=== PATIENT | female | born 1940 | race Asian ===

== ENCOUNTER 2017-11-14 02:55 | Inpatient (IN) | payer MEDICARE, MEDICAID ==
[2017-11-14] MEDS ORDERED: Nitroglycerin 2% Ointment 1 INCH/1 GM Packet ONE (03:19)
[2017-11-14] MEDS ORDERED: Metoprolol Tartrate 5 MG/5 ML VIAL ONE (03:19)
[2017-11-14 03:34] LABS: #Basophils 0.1 thou/uL (0.0-0.2); #Eosinphils 0.1 thou/uL (0.0-0.7); #Lymphocytes 1.4 thou/uL (1.20-3.40); #Monocytes 0.2 thou/uL (0.11-0.59); #Neutrophils 1.9 thou/uL (1.40-6.50); %Basophils 2.6 % (0.0-1.0); %Eosinophils 1.9 % (0.0-10.0); %Lymphocytes 38.4 % (21.0-51.0); %Monocytes 4.1 % (0.0-10.0); %Neutrophils 52.9 % (42.0-75.0); Hemoglobin 13.2 g/dL (12.0-16.0); Mean Corpuscular HGB CONC 33.6 g/dL (32.0-36.0); Mean Corpuscular Hemoglobin 32.6 pg (27.0-31.0); Mean Corpuscular Volume 96.9 fL (78.0-98.0); Platelet Count 305 thou/uL (130-400); RBC Distribution Width 13.4 % (11.5-14.5); Red Blood Cell (RBC) Count 4.06 mill/uL (4.20-5.40); White Blood Cell (WBC) Count 3.6 thou/uL (4.8-10.8)
[2017-11-14 04:03] LABS: CKMB 1.3 ng/mL (0-6.6); Troponin I Less than 0.010 ng/mL (< 0.028)
[2017-11-14 04:18] LABS: ALT (SGPT) 24 U/L (8-55); AST (SGOT) 28 U/L (5-34); Albumin 4.1 g/dL (3.4-4.8); Alkaline Phosphatase 109 U/L (40-150); Anion Gap 21 mmol/L (10-20); BUN (Urea Nitrogen) 10 mg/dL (9.8-20.1); Bilirubin, Total 1.1 mg/dL (0.2-1.2); CK (CPK) 42 U/L (29-168); Calc. Creatinine Clearance 0 mL/min (70-130); Calcium 10.4 mg/dL (7.8-10.44); Carbon Dioxide 17 mmol/L (23-31); Chloride 99 mmol/L (98-107); Estimated GFR-MDRD 67; Globulin 3.1 g/dL (2.4-3.5); Glucose 185 mg/dL (83-110); Lipase 682 U/L (8-78); Protein, Total 7.2 g/dL (6.0-8.3); Sodium 132 mmol/L (136-145)
[2017-11-14] MEDS ORDERED: Fentanyl 100 MCG/2 ML VIAL ONE ×2 (07:03→09:52)
[2017-11-14 07:04] LABS: Base Excess-Venous -4.9 mmol/L (0 (+/- 2.5)); Bicarbonate (HCO3v) 17.4 mmol/L (1.0-85.0); CO2 Tension (PvCO2) 25.7 mmHg (41.0-51.0); Calcium, Ionized 0.88 mmol/L (1.12-1.32); Hemoglobin - Calc 14.6 g/dL (12.0-18.0); O2 Tension (PvO2) 40.5 mmHg (35.0-45.0); Potassium 4.9 mmol/L (3.4-4.7); T. Carbon Dioxide 18.2 mmol/L (1.0-85.0); vO2 Saturation-calc 78.9 % (94-98)
[2017-11-14] MEDS ORDERED: Piperacillin/Tazobactam 4.5 GM VIAL ONE (07:41)
--- NOTE | 2017-11-14 07:53 | HP ---
HISTORY OF PRESENT ILLNESS: This is a 77-year-old [place] female who presents with acute onset of abd ominal pain at 1:30 in the morning. She suffered nausea and vomiting. She was seen in the emergency room and has been seen since midnight. She has peritoneal signs, diffusely tender abdomen. Of cour se, underwent a CTA that was normal. Chest x-ray was unremarkable. Abdominal ultrasound revealed ga llstones. Abdominal pelvic CAT scan revealed free air. There are some thickened small bowel loops. PAST SURGICAL HISTORY: Appendectomy. ALLERGIES: PEANUTS. TOBACCO: None. ALCOHOL: None. MEDICATIONS: Not listed, although she takes medications for diabetes, cholesterol, hypertension, thy roid replacement. She is not on insulin. She is controlled on oral hypoglycemics. PAST MEDICAL HISTORY: Hypertension, hypothyroidism treated medically, diabetes mellitus, non-insulin dependent type 2, elevated cholesterol. Left knee arthritis followed by Dr. Jefferson has received NSAID s and Tylenol treatment in the past has recommended steroid injection. REVIEW OF SYSTEMS: Ten point noncontributory. FAMILY HISTORY: Noncontributory. PHYSICAL EXAMINATION: VITAL SIGNS: Blood pressure 105/74, respiratory rate 20, heart rate 120. HEENT: Unremarkable. Sclerae nonicteric. NEURO: Neurologically intact. Cranial nerves intact. SKIN: Nonjaundiced. LUNGS: Clear to auscultation. CARDIAC: Sinus tachycardia 105. ABDOMEN: No bowel sounds. Diffusely tender, rigid, peritoneal signs. EXTREMITIES: Unremarkable. No ankle edema. LABORATORY DATA: White count 3.6, hemoglobin 13.2. Coagulate; D-dimer 3.62. Lactic acid 4.3, sodiu m 132, potassium 5, BUN 10, creatinine 0.83. Liver function tests are normal, lipase 682. CT angiog shana ultrasound gallbladder, CT scan of abdomen and pelvis, chest x-ray noted above. ASSESSMENT AND PLAN: 1. Perforated viscus peritoneal signs. She has received 4.5 grams of Zosyn IV. She has received a liter of saline and now is getting 150 mL of saline an hour. She has had an EKG. Recommendations an d I have discussed with the patient's daughter as well as the patient's cousin per telephone at the f pineday's request and recommendations for a laparotomy and indicated procedures discussed. Risk of inf ection, bleeding, reoperation, wound infection, etc. discussed. 2. Diabetes mellitus. 3. Hypertension. 4. Hypothyroidism, treated medically. 5. Elevated cholesterol. 6. Left knee arthritis ambulates with a cane. Followed by Dr. Prater
--- NOTE | 2017-11-14 08:07 | RAD ---
SINGLE VIEW CHEST: Date: 11/14/17 COMPARISON: None. HISTORY: Chest pain with nausea and vomiting. FINDINGS: Single view of the chest shows a normal sized cardiomediastinal silhouette. There is no evidence of c onsolidation, mass, or pleural effusion. Degenerative changes are seen in the spine. IMPRESSION: No evidence of acute cardiopulmonary disease. POS: [facility]
[2017-11-14] MEDS ORDERED: Sodium Chloride 0.9% 20 ML ONE (08:41)
--- NOTE | 2017-11-14 09:02 | CT ---
PRELIMINARY REPORT/[facility]/EMERGENTY AFTER-HOURS PROCEDURE Addendum created by Kevin Madrid MD on 11/14/2017 5:47 AM Central Time ([place] & [place]) THIS REPORT CONTAINS FINDINGS THAT MAY BE CRITICAL TO PATIENT CARE. The findings were verbally commun icated via telephone conference with HANNA JACKSON at 5:47 AM CDT on 11/14/2017. The findings were acknow ledged and understood. Initial Report created on 11/14/2017 5:41 AM Central Time ([place] & [place]) CT Angiography Chest With Intravenous Contrast CLINICAL HISTORY: 77 years old, female; Pain; Chest pain; Patient HX: Er 6; D-dimer 3.62; F77 reports to ed via ems C/O chest pain, nausea and vomiting. Pt reports cp localized to the left side of chest started at 01: 30 today. Pt reports x1 episode of vomiting. Pt denies SHORTNESS OF BREATH TECHNIQUE: Axial computed tomographic angiography images of the chest with intravenous contrast using pulmonary embolism protocol. MIP reconstructed images were created and reviewed. COMPARISON: No relevant prior studies available. FINDINGS: Pulmonary arteries: There is no evidence of peripheral filling defects within the pulmonary arterial circulation to suggest pulmonary embolism. Aorta: The aorta demonstrates mild atherosclerotic calcification. There is no evidence of aortic diss ection, leak, rupture, or other complications. Lungs: Normal. No mass. No consolidation. Pleural space: Normal. No significant effusion. No pneumothorax. Heart: Normal. No cardiomegaly. No significant pericardial effusion. No evidence of RV dysfunction. Bones/joints: No acute fracture. No dislocation. Soft tissues: Normal. Lymph nodes: Normal. No enlarged lymph nodes. Intraperitoneal space: There is apparent extraluminal free air seen below the hemidiaphragm, mostly e xcluded from view on this exam of the thorax. IMPRESSION: 1. There is no CT evidence of acute pulmonary embolism. 2. There is apparent extraluminal abdominal free air seen below the diaphragms, mostly excluded from view on this exam of the thorax. Thank you for allowing us to participate in the care of your patient. Dictated and Authenticated by: Kevin Madrid MD 11/14/2017 5:41 AM Central Time ([place] & [place]) FINAL REPORT CONTRAST ENHANCED CTA CHEST: Date: 11/14/17 Preliminary exam performed by [facility]. 2D and 3D reconstructed images performed. I concur with the dictation from [facility]. Some free intraperitoneal fluid is seen. Extensiv e intraperitoneal free air is seen. No evidence of pulmonary emboli seen. Coronary artery calcifications also seen. IMPRESSION: 1. No evidence of pulmonary emboli. 2. Extensive intraperitoneal free air. POS: [facility]
--- NOTE | 2017-11-14 09:04 | ULT ---
PRELIMINARY REPORT/[facility]/EMERGENTY AFTER-HOURS PROCEDURE US Abdomen Limited, Right Upper Quadrant CLINICAL HISTORY: 77 years old, female; Pain and signs and symptoms; Nausea and vomiting; Other: Cp TECHNIQUE: Real-time ultrasound of the right upper quadrant with image documentation. COMPARISON: No relevant prior studies available. FINDINGS: Liver: Normal. No mass. No intrahepatic bile duct dilation. Gallbladder: A negative sonographic Brown sign is reported. Multiple calcified gallstones are presen t. Common bile duct: CBD measures approximately 5 mm in diameter. No stones. No dilation. Pancreas: Pancreas is partially obscured by bowel gas. Right kidney: RIGHT kidney measures 5.5 x 2.9 cm and appears atrophic/not well-visualized. No stones. No hydronephrosis. IMPRESSION: No ultrasound evidence of acute pathology. Thank you for allowing us to participate in the care of your patient. Dictated and Authenticated by: Kevin Madrid MD 11/14/2017 6:18 AM Central Time ([place] & [place]) RIGHT UPPER QUADRANT ULTRASOUND: FINAL REPORT: I agree with the preliminary report given by Dr. Madrid of [facility]. There is cholelithiasis. No acute pr ocess is seen. POS: [facility]
--- NOTE | 2017-11-14 09:08 | CT ---
PRELIMINARY REPORT/[facility]/EMERGENTY AFTER-HOURS PROCEDURE CT Abdomen and Pelvis Without Intravenous Contrast CLINICAL HISTORY: 77 years old, female; Signs and symptoms; Other: Abnormal cta thx; Free air; Prior surgery; Surgery d ate: 6+ months; Surgery type: Appy; Patient HX: F77 reports to ed via ems C/O chest pain, nausea and vomiting. Pt reports cp localized to the left side of chest started at 01: 30 today. Pt reports x1 episode of vomiting. ; Additional info: Free air seen on cta thx TECHNIQUE: Axial computed tomography images of the abdomen and pelvis without intravenous contrast. All CT scans at this facility use one or more dose reduction techniques, viz.: automated exposure control; ma/kV adjustment per patient size (including targeted exams where dose is matched to indication; i.e. head) ; or iterative reconstruction technique. Coronal reformatted images were created and reviewed. COMPARISON: US Gallbladder RUQ 2017-11-14 05:48 FINDINGS: Lung bases: Normal. No mass. No consolidation. ABDOMEN: Liver: There are no focal liver lesions identified. Gallbladder and bile ducts: Multiple calcified gallstones are present. No ductal dilation. Pancreas: The pancreas appears normal. No ductal dilation. Spleen: The spleen is normal. Adrenals: Normal. No mass. Kidneys and ureters: The left kidney is normal. No obstructing stones. No hydronephrosis. Stomach and bowel: There are markedly thickened loops of small bowel in the central abdomen suspiciou s for ischemia. The stomach is normal. The duodenum is unremarkable. No obstruction. PELVIS: Appendix: No findings to suggest acute appendicitis. Bladder: The bladder is normal. No stones. Reproductive: The uterus is normal. 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 ABDOMEN and PELVIS: Intraperitoneal space: There is scattered free air throughout the abdomen. There is a trace amount of RIGHT upper quadrant ascites. There is a small to moderate amount of free pelvic fluid present. Bones/joints: No acute fracture. No dislocation. Soft tissues: Normal. Vasculature: The vasculature demonstrates diffuse moderate atherosclerotic calcification. No abdomina l aortic aneurysm. Lymph nodes: Normal. No enlarged lymph nodes. IMPRESSION: 1. There is scattered free air throughout the abdomen. 2. There are markedly thickened loops of small bowel in the central abdomen, incompletely evaluated w ithout contrast but suspicious for ischemia. THIS REPORT CONTAINS FINDINGS THAT MAY BE CRITICAL TO PATIENT CARE. The findings were verbally commun icated via telephone conference with Dr. Cartagena at 7:01 AM CDT on 11/14/2017. The findings were ackno wledged and understood. Thank you for allowing us to participate in the care of your patient. Dictated and Authenticated by: Kevin Madrid MD 11/14/2017 7:03 AM Central Time ([place] & [place]) FINAL REPORT CT ABDOMEN AND PELVIS WITH IV CONTRAST: Date: 11/14/17 FINDINGS/IMPRESSION: I agree with the preliminary report given by Isabel. POS: [facility]
[2017-11-14] MEDS ORDERED: Piperacillin/Tazobactam 3.375 GM VIAL ONE (12:31)
[2017-11-14] MEDS ORDERED: Fentanyl 250 MCG/5 ML VIAL ONE (12:33)
[2017-11-14] MEDS ORDERED: Sodium Chloride 0.9% 100 ML ONE (12:34)
[2017-11-14] MEDS ORDERED: Phenylephrine HCL 10 MG/ML VIAL ONE (12:34)
[2017-11-14] MEDS ORDERED: Succinylcholine Chloride 20 MG/ML 10 ml SYRINGE FS ONE ×2 (12:42→14:06)
[2017-11-14] MEDS ORDERED: Sodium Bicarb 50 MEQ/50 ML Abboject 8.4% SYRINGE ONE (13:56)
[2017-11-14] MEDS ORDERED: Glycopyrrolate 0.2 MG/ML 5 ML SYRINGE ONE (14:06)
[2017-11-14] MEDS ORDERED: Lidocaine 1% PF 5 ML VIAL ONE (14:06)
[2017-11-14] MEDS ORDERED: Ondansetron HCl/PF 4 MG/2 ML Vial ONE (14:06)
[2017-11-14] MEDS ORDERED: PHENYLEPHRINE-NS 100 MCG/ML 10 ML SYRINGE ONE (14:06)
[2017-11-14] MEDS ORDERED: PROPOFOL 200 MG/20 ML VIAL ONE (14:06)
[2017-11-14] MEDS ORDERED: Dexamethasone 20 MG/5 ML VIAL ONE (14:06)
[2017-11-14] MEDS ORDERED: Sodium Bicarb 50 MEQ/50 ML VIAL ONE (14:06)
[2017-11-14] MEDS ORDERED: ISOVUE-370 76%-LOCM 1 ML ONE (14:16)
[2017-11-14] MEDS ORDERED: Ondansetron HCl/PF 4 MG/2 ML Vial IVP PRN (14:31)
[2017-11-14] MEDS ORDERED: Ondansetron ODT 4 MG TAB PO PRN (14:31)
[2017-11-14] MEDS ORDERED: hydrALAZINE 20 MG/ML VIAL SLOW IVP PRN (14:31)
[2017-11-14] MEDS ORDERED: Dextrose 50% Abboject 50 ML SYRINGE SLOW IVP PRN (14:31)
[2017-11-14] MEDS ORDERED: Dextrose 5% in Water 1,000 ML IV PRN (14:31)
[2017-11-14] MEDS ORDERED: HumaLOG 300 UNITS/3 ML VIAL SC PRN (14:31)
[2017-11-14] MEDS ORDERED: Ondansetron ODT 8 MG TAB SL PRN (14:35)
[2017-11-14] MEDS ORDERED: HYDROmorphone 2 MG/ML VIAL SLOW IVP PRN (15:03)
[2017-11-14] MEDS ORDERED: Promethazine HCl 25 MG/ML VIAL IM PRN (15:03)
[2017-11-14] MEDS ORDERED: Promethazine HCl 25 MG/ML VIAL SLOW IVP PRN (15:03)
[2017-11-14] MEDS ORDERED: Ketorolac Tromethamine 30 MG/ML VIAL IVP PRN (15:03)
--- NOTE | 2017-11-14 15:14 | RAD ---
AP CHEST: History: Central line placement. Date: 11-14-17 Comparison: 11-14-17 FINDINGS: AP chest demonstrates a nasogastric tube in place, distal tip in good placement. There is placement o f a right subclavian central line. The distal aspect appears to have a hairpin turn within the superi or vena cava, migrating back upwards. This catheter should be pulled back and repositioned. No eviden ce of post placement pneumothorax is seen. IMPRESSION: 180 degree turn in the distal aspect of the recently placed central line. No evidence of post line pl acement pneumothorax seen. POS: [facility]
[2017-11-14] MEDS ORDERED: Acetaminophen 1,000 MG in Premix Bag 1 BAG IVPB SCH (15:15)
[2017-11-14] MEDS ORDERED: Ketorolac Tromethamine 30 MG/ML VIAL ONE (15:34)
[2017-11-14 16:18] VITALS: BMI 30.3
[2017-11-14] MEDS: Sodium Chloride 0.9% 1,000 ML IV SCH (16:48)
[2017-11-14] MEDS: Acetaminophen 1,000 MG in Premix Bag 1 BAG IVPB SCH (17:29)
[2017-11-14] MEDS: Piperacillin/Tazobactam 3.375 GM in Sodium Chloride 0.9% 100 ML IVPB SCH (17:29)
--- NOTE | 2017-11-14 20:56 | OP ---
DATE OF OPERATION: 11/14/2017 PREOPERATIVE DIAGNOSES: Acute abdomen, obesity, diabetes, hypertension. Asymptomatic gallstones, pe r Radiology nonpalpable. POSTOPERATIVE DIAGNOSES: Perforated pyloric channel ulcer, peritonitis, cirrhosis. Asymptomatic gal lstones, per Radiology nonpalpable. PROCEDURES: Right subclavian vein central line, exploratory laparotomy, Heineke-Mikulicz pyloroplast y with omental patch, reinforcement of closure, abdominal washout, Telfa mitzy and Prevena dressing a pplied. Otherwise, wound closed loosely with cristhian. Note, cirrhotic liver appreciated and core li jesus biopsies obtained x2 cores. SURGEON: Balwinder Chamberlain M.D. ANESTHESIA: General. ESTIMATED BLOOD LOSS: 100 mL BLOOD TRANSFUSED: None. PROCEDURE IN DETAIL: The patient was taken to the operating room where under general anesthesia in s upine position, a right subclavian vein central line placed. Using Seldinger technique, securing the catheter with suture of 3-0 silk, J-wire removed. Sterile dressing was applied. Each port aspirate d blood and flushed with saline solution. Abdomen prepared with ChloraPrep, draped in routine fashion. Midline incision made from just below t he umbilicus to above, carried down through the skin and subcutaneous tissue, midline fascia and abdo ailyn cavity sharply. There was fluid suggestive of perforated ulcer. This incision was extended ce phalad and a perforated pyloric channel ulcer noted. The patient had nodular cirrhotic liver. Core liver biopsies x2 were obtained and submitted to pathology. Hemostasis gained with the cautery. Osuna kwalter retractor was used for retraction. Heineke-Mikulicz pyloroplasty undertaken opening the duod enum and distal stomach longitudinally after mobilization of the duodenum Chuyita maneuver. Transvers e closure of the pyloroplasty performed in 2 layers with layer of continuous locking suture of 3-0 Vi cryl, outer of interrupted Lembert suture of 3-0 silk, omental patch in mobilized fashion and then af ter abdominal cavity thoroughly irrigated with 4 liters of saline solution, irrigant evacuated. Hemo stasis ensured. Omental patch secured with interrupted sutures of 2-0 silk over the pyloroplasty bryon sure. NG tube palpated in good position and secured. Fascia approximated with continuous suture of #1 PDS. Skin and subcutaneous tissues irrigated, skin approximated loosely with cristhian, Telfa mitzy applied. Prevena dressing applied. Patient tolerated the procedure well.
[2017-11-14] MEDS: Pantoprazole 40 MG VIAL IVP SCH (22:17)
[2017-11-14] MEDS: Enoxaparin Sodium 40 MG/0.4 ML SYRINGE SC SCH (22:17)
[2017-11-15] MEDS: Sodium Chloride 0.9% 1,000 ML IV SCH ×4 (00:43→17:37)
[2017-11-15] MEDS: Piperacillin/Tazobactam 3.375 GM in Sodium Chloride 0.9% 100 ML IVPB SCH ×5 (00:43→23:50)
[2017-11-15] MEDS: Acetaminophen 1,000 MG in Premix Bag 1 BAG IVPB SCH ×5 (00:43→23:50)
[2017-11-15 06:14] LABS: INR-International Normal Ratio 1.7; PTT 48.8 SEC (22.9-36.1)
[2017-11-15 06:35] LABS: ALT (SGPT) 18 U/L (8-55); AST (SGOT) 29 U/L (5-34); Albumin 2.6 g/dL (3.4-4.8); Alkaline Phosphatase 46 U/L (40-150); Anion Gap 11 mmol/L (10-20); BUN (Urea Nitrogen) 16 mg/dL (9.8-20.1); Bilirubin, Total 0.7 mg/dL (0.2-1.2); Calc. Creatinine Clearance 65 mL/min (70-130); Calcium 7.3 mg/dL (7.8-10.44); Carbon Dioxide 20 mmol/L (23-31); Chloride 107 mmol/L (98-107); Estimated GFR-MDRD 59; Globulin 2.2 g/dL (2.4-3.5); Glucose 183 mg/dL (83-110); Phosphorus 4.3 mg/dL (2.3-4.7); Potassium 4.2 mmol/L (3.5-5.1); Protein, Total 4.8 g/dL (6.0-8.3); Sodium 134 mmol/L (136-145)
[2017-11-15 06:56] LABS: Band 43 % (5-11); Hemoglobin 8.7 g/dL (12.0-16.0); Lymphocytes 6 % (21-51); MDiff Complete? YES; Mean Corpuscular HGB CONC 33.6 g/dL (32.0-36.0); Mean Corpuscular Hemoglobin 32.3 pg (27.0-31.0); Mean Corpuscular Volume 96.1 fL (78.0-98.0); Mean Platelet Volume 7.3 fL (7.4-10.4); Metamyelocyte 4 % (0-0); Monocytes 1 % (0-10); Neutrophil 46 % (42-75); Platelet Count 172 thou/uL (130-400); RBC Distribution Width 13.5 % (11.5-14.5); Red Blood Cell (RBC) Count 2.71 mill/uL (4.20-5.40); White Blood Cell (WBC) Count 12.6 thou/uL (4.8-10.8)
[2017-11-15] MEDS: Fluconazole In NaCl,Iso-Osm 200 MG in Premix Bag 1 BAG IVPB SCH (09:18)
[2017-11-15] MEDS: Pantoprazole 40 MG VIAL IVP SCH ×2 (09:18→20:27)
--- NOTE | 2017-11-15 11:42 | PRG ---
DATE OF SERVICE: 11/15/2017 The patient is in ICU. She was observed overnight after a perforated ulcer. She has done well overn ight. She is sitting up in a chair, alert and interactive. Her daughter is with her. PHYSICAL EXAMINATION: VITAL SIGNS: Blood pressure 99/64, respiratory rate 19. Urine output 810 mL urine output postoperat ively. LUNGS: Clear to auscultation. CARDIAC: Regular rate and rhythm without murmur. ABDOMEN: Soft, bowel sounds diminished. EXTREMITIES: Unremarkable. No ankle edema. Homans' negative. LABORATORY DATA: White count 12, hemoglobin 8.7. Electrolytes normal. Glucose 130-197. ASSESSMENT AND PLAN: Doing well. We will discontinue her Garduno today. We will transfer her to the floor. Continue NG tube to suction. Increase activity. I discussed with the daughter discharge dianne ns. The daughter would like for the patient to go home, but pending her physical ability, she may ne ed rehabilitation or senior care or aide at home. Daughter will talk to the remaining family mem bers to see what they are able to manage at home. Anticipating her discharge later this week, over t he weekend or early next week.
--- NOTE | 2017-11-15 13:23 | PQF ---
DATE: 11-15-17 ATTN: DR. JAZMIN ROGEL Please exercise your independent, professional judgment in responding to the clarification form. Clinical indicators are provided on the bottom of this form for your review Please check appropriate box(es): [ ] Sepsis due to: (Perforated pyloric channel ulcer / Peritonitis, etc.) [ ] SIRS due to non-infectious process (please specify etiology) [ ] with organ dysfunction [ ] without organ dysfunction [ ] Localized infection without sepsis [ ] Other diagnosis [ ] Unable to determine In addition, please specify: Present on Admission (POA): [ ] Yes [ ] No [ ] Unable to determine For continuity of documentation, please document condition throughout progress notes and discharge summary. Thank You. CLINICAL INDICATORS - SIGNS / SYMPTOMS / LABS: ER DOCUMENTATION: ABD/PELVIS CT SCAN: FREE AIR, THICKENED LOOPS OF SMALL BOWEL CENTRALLY AND CONCERN FOR ISCHEMIA VS INFECTION, ER DIAGNOSIS : POSSIBLE SMALL BOWEL PERFORATION, LACTIC ACIDOSIS, PANCREATITIS ER: PULSE: 138, 135, 118, 118 PULSE: 6-20: 104, 107, 104 6-21: 100, 100, 104, 100, 111, 105 TEMP: 100 RR: 6-21: 24, 22, 27, 24, 27, 24, 25 LACTIC ACID: 6-20: 4.3 WBC: 6-20: 3.6, 6-21: 12.6 BANDS: 6-21: 43 RISK FACTORS: ER: DM2, HTN H&P: SHE HAS PERITONEAL SIGNS, DIFFUSE TENDER ABDOMEN. ABDOMINAL ULTRASOUND REVEALED GALLSTONES. ABDOMINAL PELVIC CT SCAN REVEALED FREE AIR. PERFORATED VISCUS PERITONEAL SIGNS. OPERATIVE NOTE: POSTOPERATIVE DIAGNOSIS: PERFORATED PYLORIC CHANNEL ULCER, PERITONITIS, CIRRHOSIS. OPERATIVE NOTE: R SUBCLAVIAN VEIN CENTRAL LINE, EXPLORATORY LAPAROTOMY, HEINEKE-MIKULICZ PYLOROPLASTY WITH OMENTAL PATCH, REINFORCEMENT OF CLOSURE, ABDOMINAL WASHOUT, CIRRHOTIC LIVER APPRECIATED AND CORE LIVER BIOPSIES OBTAINED X 2 CORES. TREATMENTS: (MAR) IVF, ZOSYN, DIFLUCAN (This form is maintained as a part of the permanent medical record) 2014 [employer]. All Rights Reserved MARCO [email or web address] Office: [phone] [facility]
--- NOTE | 2017-11-15 19:24 | RAD ---
RADIOGRAPH ABDOMEN 1 VIEW: Date: 11/15/17 Time: 6:15 p.m. HISTORY: 77-year-old female status post NG tube placement. COMPARISON: Chest radiograph of 11/14/17, 2:09 p.m. FINDINGS: Chest and upper half of abdomen are included in the field of view. The previously demonstrated NG tu be is still present, with distal tip at the left upper quadrant, and side port in the expected vicini ty of the proximal aspect of the stomach. Again noted is the right subclavian central vascular cathet er which is doubled back upon itself at the right mediastinum. The lungs are hypoinflated, and the im age is overexposed, limiting the evaluation of the lungs. Mild streaky densities are now present in t he right mid lung zone, which may represent subsegmental atelectasis. No consolidation or pneumothora x identified. No evidence of pneumoperitoneum. IMPRESSION: 1. Interval development of probable mild subsegmental atelectasis in the right lung. 2. No other interval change. 3. Nasogastric tube remains. 4. Right subclavian central vascular catheter doubled back on itself is unchanged. KENDRA [] POS: [facility]
[2017-11-15] MEDS: Enoxaparin Sodium 40 MG/0.4 ML SYRINGE SC SCH (20:27)
[2017-11-16] MEDS: Sodium Chloride 0.9% 1,000 ML IV SCH ×3 (03:19→12:36)
[2017-11-16 05:20] LABS: #Eosinphils 0.1 thou/uL (0.0-0.7); #Lymphocytes 0.9 thou/uL (1.20-3.40); #Monocytes 0.2 thou/uL (0.11-0.59); #Neutrophils 9.2 thou/uL (1.40-6.50); %Basophils 0.1 % (0.0-1.0); %Lymphocytes 8.7 % (21.0-51.0); %Monocytes 1.8 % (0.0-10.0); %Neutrophils 88.5 % (42.0-75.0); Hemoglobin 8.4 g/dL (12.0-16.0); Mean Corpuscular HGB CONC 33.3 g/dL (32.0-36.0); Mean Corpuscular Hemoglobin 32.5 pg (27.0-31.0); Mean Corpuscular Volume 97.4 fL (78.0-98.0); Mean Platelet Volume 7.3 fL (7.4-10.4); Platelet Count 138 thou/uL (130-400); RBC Distribution Width 13.6 % (11.5-14.5); Red Blood Cell (RBC) Count 2.58 mill/uL (4.20-5.40); White Blood Cell (WBC) Count 10.4 thou/uL (4.8-10.8)
[2017-11-16] MEDS: Piperacillin/Tazobactam 3.375 GM in Sodium Chloride 0.9% 100 ML IVPB SCH ×3 (05:39→18:50)
[2017-11-16] MEDS: Acetaminophen 1,000 MG in Premix Bag 1 BAG IVPB SCH ×3 (05:39→18:08)
[2017-11-16 05:43] LABS: ALT (SGPT) 19 U/L (8-55); AST (SGOT) 29 U/L (5-34); Albumin 2.6 g/dL (3.4-4.8); Alkaline Phosphatase 48 U/L (40-150); Anion Gap 11 mmol/L (10-20); BUN (Urea Nitrogen) 16 mg/dL (9.8-20.1); Bilirubin, Total 0.5 mg/dL (0.2-1.2); Calc. Creatinine Clearance 80 mL/min (70-130); Calcium 7.5 mg/dL (7.8-10.44); Carbon Dioxide 19 mmol/L (23-31); Chloride 111 mmol/L (98-107); Estimated GFR-MDRD 75; Globulin 2.2 g/dL (2.4-3.5); Glucose 99 mg/dL (83-110); Potassium 3.8 mmol/L (3.5-5.1); Protein, Total 4.8 g/dL (6.0-8.3); Sodium 137 mmol/L (136-145)
[2017-11-16] MEDS: Fluconazole In NaCl,Iso-Osm 200 MG in Premix Bag 1 BAG IVPB SCH (09:53)
[2017-11-16] MEDS: Pantoprazole 40 MG VIAL IVP SCH ×2 (09:54→21:30)
[2017-11-16] MEDS ORDERED: Dextrose 5 % And 0.9 % NaCl 1,000 ML IV SCH (16:15)
[2017-11-16] MEDS ORDERED: Dextrose 50% Abboject 50 ML SYRINGE SLOW IVP SCH (16:15)
[2017-11-16] MEDS: Enoxaparin Sodium 40 MG/0.4 ML SYRINGE SC SCH (21:28)
[2017-11-16] MEDS: Dextrose 5 % And 0.9 % NaCl 1,000 ML IV SCH (21:29)
[2017-11-17] MEDS: Piperacillin/Tazobactam 3.375 GM in Sodium Chloride 0.9% 100 ML IVPB SCH ×3 (00:49→13:27)
[2017-11-17] MEDS: Acetaminophen 1,000 MG in Premix Bag 1 BAG IVPB SCH ×3 (00:49→13:28)
--- NOTE | 2017-11-17 04:04 | PRG ---
DATE OF SERVICE: 11/16/2017 SUBJECTIVE: Jaimie Valdes is doing well today. NG tube output was negligible yesterday. NG tu be was removed this morning. She has not had any nausea or vomiting. She has passed flatus. X-rays of the NG tube were confirmed last night that was in proper position as verified intraoperatively. The patient denies having any significant pain. OBJECTIVE: LUNGS: Clear to auscultation. CARDIAC: Regular rate and rhythm without murmur or gallop. ABDOMEN: Soft, bowel sounds present. Telfa mitzy removed from incision. She is having some oozing from her lower incision that may require staple, but will observe it tonight, a fresh dressing was ap plied. VITAL SIGNS: Temperature 97.4, pulse 98, blood pressure 139/83. LABORATORY DATA: White count 10, hemoglobin 8.4. Electrolytes are unremarkable. ASSESSMENT AND PLAN: Doing well after perforated ulcer, status post pyloroplasty omental patch. We will check her hemoglobin tomorrow again. We will decrease her IV fluids, continue proton pump inhib itors and will order a clear liquid diet in the morning.
[2017-11-17 04:57] LABS: #Eosinphils 0.2 thou/uL (0.0-0.7); #Monocytes 0.2 thou/uL (0.11-0.59); #Neutrophils 6.8 thou/uL (1.40-6.50); %Basophils 0.1 % (0.0-1.0); %Eosinophils 2.2 % (0.0-10.0); %Lymphocytes 12.3 % (21.0-51.0); %Monocytes 2.4 % (0.0-10.0); Mean Corpuscular HGB CONC 34.4 g/dL (32.0-36.0); Mean Corpuscular Hemoglobin 32.7 pg (27.0-31.0); Mean Corpuscular Volume 95.1 fL (78.0-98.0); Mean Platelet Volume 7.1 fL (7.4-10.4); Platelet Count 138 thou/uL (130-400); RBC Distribution Width 13.3 % (11.5-14.5); Red Blood Cell (RBC) Count 2.13 mill/uL (4.20-5.40); White Blood Cell (WBC) Count 8.3 thou/uL (4.8-10.8)
[2017-11-17 05:29] LABS: Anion Gap 12 mmol/L (10-20); BUN (Urea Nitrogen) 11 mg/dL (9.8-20.1); Calc. Creatinine Clearance 86 mL/min (70-130); Calcium 7.6 mg/dL (7.8-10.44); Carbon Dioxide 17 mmol/L (23-31); Chloride 112 mmol/L (98-107); Estimated GFR-MDRD 82; Glucose 123 mg/dL (83-110); Potassium 3.3 mmol/L (3.5-5.1); Sodium 138 mmol/L (136-145)
[2017-11-17] MEDS: Pantoprazole 40 MG VIAL IVP SCH (09:00)
[2017-11-17] MEDS: Fluconazole In NaCl,Iso-Osm 200 MG in Premix Bag 1 BAG IVPB SCH (09:01)
[2017-11-17 13:16] LABS: HBCM Index 0.05 S/CO (0-0.79); HBSAg Index 0.23 S/CO (0-0.99); Hep A IgM AB Non-Reactive (NonReactive); Hep A IgM S/CO 0.14 S/CO (0-0.79); Hep B Surf Ag Non-Reactive S/CO (NonReactive); Hep C IgG Ab Non-Reactive (NonReactive); Hepatitis B Core IGM Abs Non-Reactive (NonReactive)
[2017-11-17] MEDS ORDERED: Acetaminophen 500 MG TAB PO PRN (17:02)
[2017-11-17] MEDS ORDERED: traMADol HCl 50 MG TAB PO PRN ×2 (17:04)
[2017-11-17] MEDS ORDERED: Potassium Chloride 20 MEQ TAB PO SCH (17:15)
[2017-11-17] MEDS: Dextrose 5 % And 0.9 % NaCl 1,000 ML IV SCH (18:19)
--- NOTE | 2017-11-17 21:29 | PRG ---
DATE OF SERVICE: 11/17/2017 SUBJECTIVE: The patient is doing well after repair of perforated pyloric channel ulcer on 11/14/2017 . She is tolerating her liquids. She has had bowel movements. Her wound is not draining anymore. She has been accepted to rehabilitation. PHYSICAL EXAMINATION: VITAL SIGNS: Temperature 98.2 degrees, 96, 16, 98%, 155/83. LUNGS: Clear to auscultation. CARDIAC: Regular rate and rhythm without murmur or gallop. ABDOMEN: Soft, nontender. EXTREMITIES: Unremarkable. LABORATORY DATA: Hemoglobin 7 and white count 8. Basic metabolic profile normal. Hepatitis panel n onreactive. H. pylori pending. PT 20. ASSESSMENT AND PLAN: 1. 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 Dr. Childress has seen her. We will follow her u p in the office in 2 weeks. 2. Perforated pyloric channel ulcer. PPI orally for life. Advance diet as tolerated. 3. Deconditioning. Transfer to rehab tomorrow. 4. Helicobacter pylori are pending. Follow up in my office in two to three weeks. Remove cristhian i n one week.
[2017-11-17] MEDS: Amoxicillin/Potassium Clav 500 MG TAB PO SCH (21:37)
[2017-11-17] MEDS: Enoxaparin Sodium 40 MG/0.4 ML SYRINGE SC SCH (21:37)
--- NOTE | 2017-11-18 02:00 | CON ---
DATE OF CONSULTATION: 11/17/2017 REFERRING PHYSICIAN: Dr. Balwinder Chamberlain. REASON FOR CONSULTATION: Liver biopsy showing liver cirrhosis. HISTORY OF PRESENT ILLNESS: Ms. Jaimie Valdes is a 77-year-old, -[place] female with hype rtension, hypothyroidism, hyperlipidemia and diabetes mellitus. She was hospitalized on 11/14/2017 w ith severe abdominal pain and was found to have free air in the abdomen. She underwent laparotomy an d was found to have perforated pyloric channel ulcer and had surgery done. At surgery, she was found to have nodular appearing liver. She underwent a liver biopsy. 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 I was asked to see the patient by Dr Amado Chamberlain because of the liver cirrhosis. The patient has no prior history of liver disease. There i s no family history of liver disease. There is no prior history of any hepatitis. No history of any jaundice in the past. She had never told to have any abnormal liver function tests or any liver dis ease from before. She is recovering well after the surgery, and she is tolerating clear liquid diet. She is passing flatus and she had two small stools. No nausea, no vomiting. No relevant history. ALLERGIES: No drug allergies. SOCIAL HISTORY: The patient is . She does not smoke or drink alcohol. MEDICAL ILLNESSES: 1. Hypertension. 2. Hypothyroidism. 3. Diabetes mellitus. 4. High cholesterol. 5. Obesity. 6. Arthritis, left knee and has had injection over the left knee by Dr. Jefferson and also planned to hav e a knee replacement done in near future. MEDICATIONS: List reviewed. REVIEW OF SYSTEMS: A 10-point system review. Constitutional: No fever, no weight loss. Has good e nergy level. 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 Respira tory system: No history of chronic cough, hemoptysis, or dyspnea. Cardiovascular system: No chest pain, no palpitation, no dyspnea, orthopnea or PND. Gastrointestinal: As in history of present illn ess. Genitourinary: No dysuria or hematuria. MUSCULOSKELETAL: Left knee pain and is planned to daly ve a left knee replacement. Neurologic: Unremarkable. Endocrine: Unremarkable. Hematological: Un remarkable. PHYSICAL EXAMINATION: GENERAL: The patient appears very comfortable. She is obese. VITAL SIGNS: Afebrile, pulse is 98, blood pressure is 147/61. HEENT: Conjunctivae clear. NECK: Supple. No adenitis or thyromegaly noted. CARDIOVASCULAR SYSTEM: First and second heart sounds normal. LUNGS: Clear to auscultation. ABDOMEN: Abdomen is soft. Abdomen is nontender. Abdomen is nondistended. No organomegaly or shantell s. EXTREMITIES: Reveal no edema. LABORATORY DATA: Her hepatitis markers all negative for type A, B and C. CBC: She is mildly anemic . On admission, she has normal hemoglobin at 13.2, hematocrit 39.4. Today, WBC count is 8300, hemog lobin is 7, hematocrit 20.3, platelet count is 138,000. Coagulation: PT is 20, INR 1.7, PTT 48.8. Chemistry panel shows sodium 138, potassium 3.3, chloride 112, bicarbonate 17, BUN is 11, creatinine 0.69, glucose is 153. Her liver function tests on 11/16/2017 shows bilirubin of 0.5, AST is 29, ALT 19, alkaline phosphatase 48, albumin 2.6. CLINICAL IMPRESSION: A 77-year-old, -[place] female with a perforated peptic ulcer, status pos t surgery. At surgery, she was found to have a cirrhotic appearing liver and biopsy does show liver cirrhosis. There is also mention of hepatitis like picture. Interestingly, her hepatitis markers ar e negative. She had no symptoms of liver disease like fatigue or tiredness. The etiology of the bridgette er disease is unclear at the present time. RECOMMENDATIONS: Obtain JOHANNA, AMA, and also alpha-1 antitrypsin level. The patient will come back fo r a followup outpatient in the next few weeks.
[2017-11-18 06:26] LABS: Anion Gap 11 mmol/L (10-20); BUN (Urea Nitrogen) 9 mg/dL (9.8-20.1); Calc. Creatinine Clearance 90 mL/min (70-130); Calcium 8.1 mg/dL (7.8-10.44); Carbon Dioxide 18 mmol/L (23-31); Chloride 111 mmol/L (98-107); Estimated GFR-MDRD 87; Glucose 113 mg/dL (83-110); Potassium 3.5 mmol/L (3.5-5.1); Sodium 136 mmol/L (136-145)
[2017-11-18 07:26] LABS: Band 9 % (5-11); Eosinophils 3 % (0-10); Hemoglobin 6.9 g/dL (12.0-16.0); Lymphocytes 22 % (21-51); MDiff Complete? YES; Mean Corpuscular HGB CONC 34.8 g/dL (32.0-36.0); Mean Corpuscular Hemoglobin 32.7 pg (27.0-31.0); Monocytes 1 % (0-10); Neutrophil 65 % (42-75); Platelet Count 138 thou/uL (130-400); RBC Distribution Width 13.7 % (11.5-14.5)
[2017-11-18] MEDS ORDERED: Ferrous Sulfate 325 MG TAB PO SCH (08:00)
[2017-11-18] MEDS ORDERED: Fluconazole 100 MG TAB PO SCH (09:00)
[2017-11-18] MEDS: Amoxicillin/Potassium Clav 500 MG TAB PO SCH (09:17)
[2017-11-18 12:39] VITALS: BP 136/74; TEMP 98.1
--- NOTE | 2017-11-18 13:08 | PRG ---
DATE OF SERVICE: 11/18/2017 SUBJECTIVE: Jaimie Valdes is doing well today. She is ambulating without orthostasis, without dizziness, without weakness. PHYSICAL EXAMINATION: VITAL SIGNS: Temperature 98.7, heart rate 90-105, respiratory rate 16. LUNGS: Clear to auscultation. CARDIAC: Regular rate and rhythm without murmur or gallop. ABDOMEN: Soft, nontender. Surgical wound looks good. [place] can be removed next week. LABORATORY DATA: This morning, her hemoglobin is 6.9. It was 7 yesterday. White count is 6. Basic metabolic profile is normal. ASSESSMENT AND PLAN: Doing well, can go to rehabilitation. She does not need a transfusion. She is ambulating without orthostasis. She is on iron and multivitamins. She is on oral Diflucan and Augm entin for 5 days. She will follow up in my office in 2-3 weeks. She will need to be on a PPI daily, probably for the rest of her life. She can take Nexium or Prilosec, prescription or [id number] r. She is encouraged to avoid frequent prolonged use of NSAIDs, although she can take these occasion ally. Would probably avoid these for the next 2 weeks.
--- NOTE | 2017-11-18 18:31 | DIS ---
DATE OF ADMISSION: 11/14/2017 DATE OF DISCHARGE: DISCHARGE DIAGNOSES: 1. Perforated pyloric channel ulcer with pyloroplasty and omental flap and liver biopsy. 2. Non-viral hepatitis, probably secondary to obesity, nonalcoholic steatohepatitis syndrome. Dr. Lawrence an saw her in consultation, will see her in 2-3 weeks. No treatment indicated. 3. Obesity, 5 foot, 476 pounds. 4. Diabetes mellitus. 5. Hypothyroidism. 6. Hypertension. HISTORY: A 77-year-old female who presents with acute abdomen. She had a CAT scan demonstrating inf lammatory changes and free air. She underwent laparotomy, pyloroplasty, omental patch. She was appr eciated to have cirrhosis. Liver biopsies obtained revealed cirrhosis grade 3/[address] Childress consult and he will see her in 2-3 weeks. The patient had some oozing from her wound. This stopped spontaneously. Anticoagulation studies were normal. Discharge hemoglobin 7. Discharg ed to home to resume her home medications, see history and physical and to take antibiotics for 5 day s, PPI daily for . Follow up in my office in about 1 week for staple removal. Follow up with Gertrudis Childress for her cirrhosis, CHEUNG. Diet and activity as tolerated without lifting more than 25 po unds for 4 weeks postoperatively.
--- NOTE | 2017-11-18 22:11 | DIS ---
DATE OF ADMISSION: 11/14/2017 TRANSFERRED TO REHABILITATION: 11/18/2017 DISCHARGE DIAGNOSES: 1. Perforated pyloric channel ulcer. 2. New diagnosis of cirrhosis, status post liver biopsies. Hepatitis serology negative. Discharge hemoglobin 6.9 asymptomatic, nonorthostatic, ambulating without weakness. She does not need a transf usion, H. pylori serology, pending. Hepatitis serology, negative. HISTORY: A 77-year-old female with comorbidities of diabetes, hypertension, has never been in the [facility] in the past. She is admitted with abdominal pain. CAT scan obtained in the emergency room re vealed free air and fluid. Operation revealed perforated pyloric channel ulcers. Newly diagnosed ci rrhosis, liver biopsy obtained. Pathology revealed cirrhosis. Hepatitis serology negative. Postope rative, her NG tube was removed the next day. She convalesced and tolerated her diet. Dr. Childress saw her, Gastroenterology, and will see her in his office in 2 weeks. She will follow up in my offi ce in 2 weeks. The patient has been transferred to rehab for reconditioning. She did not require tr ansfusion. She is asymptomatic from her anemia. She will resume her home medications. She did not require any narcotic analgesics, pain can be treated with Ultram and Tylenol. She is placed on iron twice a day and multivitamins. No lifting over 25 pounds for 6 weeks. Neely removed next week in rehabilitation. Follow up in my office in 2-3 weeks. Follow up with Dr. Childress in 2-3 weeks.
--- NOTE | 2017-11-19 09:12 | PQF ---
DATE: 11-15-17 ATTN: DR. JAZMIN ROGEL Please exercise your independent, professional judgment in responding to the clarification form. Clinical indicators are provided on the bottom of this form for your review Please check appropriate box(es): [ yes ] Sepsis due to: (Perforated pyloric channel ulcer / Peritonitis, etc.) __ [yes ] SIRS due to non-infectious process (please specify etiology) [ ] with organ dysfunction [ ] without organ dysfunction [ ] Localized infection without sepsis [ ] Other diagnosis [ ] Unable to determine In addition, please specify: Present on Admission (POA): [ yes ] Yes [ ] No [ ] Unable to determine For continuity of documentation, please document condition throughout progress notes and discharge summary. Thank You. CLINICAL INDICATORS - SIGNS / SYMPTOMS / LABS:peritonitis due to perforated duodenal ulcer with sepsis ER DOCUMENTATION: ABD/PELVIS CT SCAN: FREE AIR, THICKENED LOOPS OF SMALL BOWEL CENTRALLY AND CONCERN FOR ISCHEMIA VS INFECTION, ER DIAGNOSIS: POSSIBLE SMALL BOWEL PERFORATION, LACTIC ACIDOSIS, PANCREATITIS ER: PULSE: 138, 135, 118, 118 PULSE: 6-20: 104, 107, 104 6-21: 100, 100, 104, 100, 111, 105 TEMP: 100 RR: 6-21: 24, 22, 27, 24, 27, 24, 25 LACTIC ACID: 6-20: 4.3 WBC: 6-20: 3.6, 6-21: 12.6 BANDS: 6-21: 43 RISK FACTORS: ER: DM2, HTN H&P: SHE HAS PERITONEAL SIGNS, DIFFUSE TENDER ABDOMEN. ABDOMINAL ULTRASOUND REVEALED GALLSTONES. ABDOMINAL PELVIC CT SCAN REVEALED FREE AIR. PERFORATED VISCUS PERITONEAL SIGNS. OPERATIVE NOTE: POSTOPERATIVE DIAGNOSIS: PERFORATED PYLORIC CHANNEL ULCER, PERITONITIS, CIRRHOSIS. OPERATIVE NOTE: R SUBCLAVIAN VEIN CENTRAL LINE, EXPLORATORY LAPAROTOMY, HEINEKE-MIKULICZ PYLOROPLASTY WITH OMENTAL PATCH, REINFORCEMENT OF CLOSURE, ABDOMINAL WASHOUT, CIRRHOTIC LIVER APPRECIATED AND CORE LIVER BIOPSIES OBTAINED X 2 CORES. TREATMENTS: (MAR) IVF, ZOSYN, DIFLUCAN (This form is maintained as a part of the permanent medical record) 2014 [employer]. All Rights Reserved MARCO [email or web address] Office: [phone] [facility]
[2017-11-19 14:19] LABS: Hep B Surface AG-Rflx Sendout Negative (Negative); Hepatitis B Core IgM AB Negative (Negative); Hepatitis B Core Total Negative (Negative); Hepatitis B Surface AB-Sendout Non Reactive (.)
[2017-11-19 20:09] LABS: H. pylori IgA ABS Less than 9.0 units (0.0-8.9); H. pylori IgG ABS 0.22 (0.00-0.79); H. pylori IgM ABS Less than 9.0 units (0.0-8.9)
== END 2017-11-18 12:40 | DRG 853 ==
LOC: ERS 02:55 → CCU 08:52 → SURG A 11-15 13:50
PROVIDERS: ADMIT Specialist; ATTEND Specialist
PROC: 0DQ70ZZ Repair Stomach, Pylorus, Open Approach (ICD-10-PCS; principal; 2017-11-14)
PROC: 05H533Z Insertion of Infusion Device into Right Subclavian Vein, Percutaneous Approach (ICD-10-PCS; 2017-11-14)
PROC: 0FB00ZX Excision of Liver, Open Approach, Diagnostic (ICD-10-PCS; 2017-11-14)
PROC: 3E1M38Z Irrigation of Peritoneal Cavity using Irrigating Substance, Percutaneous Approach (ICD-10-PCS; 2017-11-14)
DX: A41.9 Sepsis, unspecified organism (principal); K65.9 Peritonitis, unspecified; K25.1 Acute gastric ulcer with perforation; E87.2 Acidosis; E11.9 Type 2 diabetes mellitus without complications; I10 Essential (primary) hypertension; E03.9 Hypothyroidism, unspecified; Z91.010 Allergy to peanuts; E78.5 Hyperlipidemia, unspecified; M17.12 Unilateral primary osteoarthritis, left knee; Z79.899 Other long term (current) drug therapy; E66.9 Obesity, unspecified; K80.80 Other cholelithiasis without obstruction; K74.60 Unspecified cirrhosis of liver; Z68.30 Body mass index [BMI] 30.0-30.9, adult
CPT/HCPCS: 36415; 36416; 71045; 71275; 74018; 74177; 76705; 80048; 80053; 80074; 82103; 82104; 82330; 82550; 82553; 82803; 83516; 83605; 83690; 83735; 83880; 84100; 84484; 85025; 85379; 85610; 85730; 86038; 86225; 86704; 86705; 86706; 86707; 87340; 87350; 88307; 88313; 93005; 96361; 96365; 96375; A4216; C9113; G8978-GP-CK; G8979-GP-CI; G8987-GO-CK; G8988-GO-CJ; J0131; J1100; J1450; J1650; J1885; J2001; J2270; J2370; J2405; J2543; J2704; J3010; J7050

== ENCOUNTER 2019-03-20 07:14 | Outpatient (CLI) | payer MEDICARE, MEDICAID ==
[2019-03-20 13:49] LABS: Bilirubin Negative (Negative); Blood, Urine Negative (Negative); Clarity Clear (Clear); Glucose, Urine (Dipstick) Normal (Negative); Leukocyte 75 Leu/uL (Negative); Nitrite Negative (Negative); Protein, Urine (Dipstick) Negative (Neg-Trace); RBC/HPF 0-3 HPF (0-3); Squamous Epithelial 0-3 HPF (0-3); Urobilinogen Normal mg/dL (Less than 2)
[2019-03-20 13:52] LABS: Bacteria/HPF 1+ HPF (None Seen)
[2019-03-20 14:29] LABS: #Eosinphils 0.2 thou/uL (0.0-0.7); #Lymphocytes 1.8 thou/uL (1.20-3.40); #Monocytes 0.4 thou/uL (0.11-0.59); #Neutrophils 2.1 thou/uL (1.40-6.50); %Basophils 0.8 % (0.0-1.0); %Eosinophils 3.5 % (0.0-10.0); %Lymphocytes 39.6 % (21.0-51.0); %Monocytes 7.9 % (0.0-10.0); %Neutrophils 48.1 % (42.0-75.0); Hemoglobin 8.8 g/dL (12.0-16.0); Mean Corpuscular HGB CONC 32.9 g/dL (32.0-36.0); Mean Corpuscular Hemoglobin 33.1 pg (27.0-31.0); Mean Platelet Volume 8.1 fL (7.4-10.4); Platelet Count 128 thou/uL (130-400); RBC Distribution Width 12.7 % (11.5-14.5); Red Blood Cell (RBC) Count 2.65 mill/uL (4.20-5.40); White Blood Cell (WBC) Count 4.5 thou/uL (4.8-10.8)
[2019-03-20 14:33] LABS: INR-International Normal Ratio 1.1; PTT 31.7 SEC (22.9-36.1); Prothrombin Time 13.8 SEC (12.0-14.7)
[2019-03-20 14:41] LABS: ALT (SGPT) 15 U/L (8-55); AST (SGOT) 26 U/L (5-34); Albumin 4.2 g/dL (3.4-4.8); Alkaline Phosphatase 152 U/L (40-110); Anion Gap 11 mmol/L (10-20); BUN (Urea Nitrogen) 37 mg/dL (9.8-20.1); Bilirubin, Direct 0.3 mg/dL (0.1-0.3); Bilirubin, Total 0.6 mg/dL (0.2-1.2); Calc. Creatinine Clearance 0 mL/min (70-130); Calcium 9.8 mg/dL (7.8-10.44); Carbon Dioxide 18 mmol/L (23-31); Chloride 110 mmol/L (98-107); Estimated GFR-MDRD 26; Glucose 226 mg/dL (83-110); Potassium 4.3 mmol/L (3.5-5.1); Protein, Total 6.6 g/dL (6.0-8.3); Sodium 135 mmol/L (136-145)
== END 2019-03-20 07:15 | disposition home or self-care (01) ==
LOC: LABBT 07:14
PROVIDERS: ATTEND Orthopaedic Surgery
DX: Z01.818 Encounter for other preprocedural examination (principal); M17.12 Unilateral primary osteoarthritis, left knee
CPT/HCPCS: 80048; 80076; 81001; 85025; 85610; 85730; 87081; 93005; 93010

== ENCOUNTER 2019-04-01 09:13 | Day surgery (SDC) | payer MEDICARE, MEDICAID ==
--- NOTE | 2019-04-01 12:15 | OP ---
DATE OF PROCEDURE: 04/01/2019 PROCEDURES PERFORMED: 1. Esophagogastroduodenoscopy. 2. Colonoscopy. PREPROCEDURE DIAGNOSES: 1. Hemoccult-positive stool. No overt gastrointestinal bleeding. 2. Anemia with a normal hemoglobin in 10/2017 at 13.2 and hemoglobins from 6.6 to 9.9 since 10/2017 with normal MCV. She has been on iron, but has not responded to therapy. In my office on 03/27/2019, iron 121, saturation 30%, ferritin 100, AFP of 4, B12 of 1644, folic acid greater than 20. 3. History of duodenal ulcer with perforation, presenting with perforation. No overt bleeding. 4. Diagnosis of cirrhosis at same time, that was in 10/2017. POSTPROCEDURE DIAGNOSES: 1. Esophagogastroduodenoscopy notable for postoperative changes in the duodenal bulb, but no evidence of ulcerations, erosions, arteriovenous malformations, or bleeding. Stomach is without any signs of gastric antral vascular ectasia or portal hypertensive changes. Esophagus is normal with no varices. 2. Colonoscopy normal. RECOMMENDATIONS: 1. We will set up a capsule endoscopy of the small bowel in the outpatient setting with regard to the heme-positive stool and anemia. 2. Consider referral to Hematology. This may not be iron-deficiency anemia. She remains anemic despite adequate iron stores at this time. 3. With regard to history of cirrhosis, we will continue hepatoma screening on every 6-month interval. She seems to be very compensated at the time of surgery, etiology is unclear. Platelet count is 128,000, indicating a very little portal hypertension. PROCEDURE IN DETAIL: After the patient was informed of the risks, benefits, and possible complications of endoscopy including perforation, bleeding, reaction to medication, and aspiration, informed consent was obtained. The patient was brought to endoscopy suite, where she was sedated in gradual fashion. Once she was comfortable, bite block was placed inside the orifice. The endoscope was advanced through the esophagus, stomach, and second and third portions of the duodenum and slowly removed. There was good visualization of the mucosa. The esophagus was normal. No signs of varices. The stomach was entered and found to be normal with normal distention, normal forward and retroflexed views. There was no portal hypertensive gastropathy or gastric varices. There were no AVMs in the stomach. The duodenum was entered and traversed the third portion. No signs of AVMs. There was some scarring in the duodenal bulb, consistent with previous surgery, but no ulcers or erosions were seen. The scope was removed. The patient was returned to the room and rectal examination was performed. The endoscope was inserted into the anal canal through the colon to the cecum, which was identified by ileocecal valve and the appendiceal orifice. The scope was then slowly removed. The prep was very good. There were no polyps, masses, or lesions seen. Retroflexed views were normal. No bleeding sites were identified. Job ID: [id number]
[2019-04-01] MEDS ORDERED: PROPOFOL 200 MG/20 ML VIAL ONE (13:06)
== END 2019-04-01 12:40 | disposition home or self-care (01) ==
LOC: SDC 09:13
PROVIDERS: ATTEND Internal Medicine Gastroenterology
PROC: 0DJ08ZZ Inspection of Upper Intestinal Tract, Via Natural or Artificial Opening Endoscopic (ICD-10-PCS; principal; 2019-04-01)
PROC: 0DJD8ZZ Inspection of Lower Intestinal Tract, Via Natural or Artificial Opening Endoscopic (ICD-10-PCS; 2019-04-01)
DX: D50.0 Iron deficiency anemia secondary to blood loss (chronic) (principal); R19.5 Other fecal abnormalities; K57.30 Diverticulosis of large intestine without perforation or abscess without bleeding; K74.60 Unspecified cirrhosis of liver; Z87.11 Personal history of peptic ulcer disease; Z88.6 Allergy status to analgesic agent; Z91.010 Allergy to peanuts
CPT/HCPCS: J2704

== ENCOUNTER 2019-04-04 09:19 | Outpatient (CLI) | payer MEDICARE, MEDICAID ==
--- NOTE | 2019-04-04 12:15 | ULT ---
ULTRASOUND HEPATIC DOPPLER: Date: 04/04/19 HISTORY: Occult blood in stool. Peptic ulcer disease. COMPARISON: None. FINDINGS: Real-time Babcock scale with color Doppler and spectral analysis of the liver and hepatic vessels, as we ll as splenic vessels, was obtained. Visualized portions of the pancreas, aorta, and IVC are unremarkable. Mild coarsened hepatic echotext ure. Normal directional flow within the hepatic veins and portal veins. There is cholelithiasis without cholecystitis. The common bile duct measures 4.0 mm. Hepatic artery has normal directional flow and phasicity. Liver measures 13.0 cm in length. The spleen measures 8.5 cm in length. The right kidney is not fully interrogated. IMPRESSION: 1. Cholelithiasis without cholecystitis. 2. Coarsened hepatic echotexture suggesting a component of hepatocellular dysfunction. POS: TPC
== END 2019-04-04 09:20 | disposition home or self-care (01) ==
LOC: ULT 09:19
PROVIDERS: ATTEND Internal Medicine Gastroenterology
DX: R19.5 Other fecal abnormalities (principal); Z87.11 Personal history of peptic ulcer disease
CPT/HCPCS: 76705

== ENCOUNTER 2019-05-06 07:26 | Day surgery (SDC) | payer MEDICARE, MEDICAID ==
[2019-05-05 14:57] VITALS: BMI 20.5
[2019-05-06] MEDS ORDERED: Fentanyl 100 MCG/2 ML VIAL ONE ×4 (07:53→14:25)
[2019-05-06] MEDS ORDERED: Midazolam HCl 2 mg/2 ml Vial ONE (07:53)
[2019-05-06] MEDS ORDERED: Sodium Chloride 0.9% 100 ML ONE (08:23)
[2019-05-06] MEDS ORDERED: Tranexamic Acid 1,000 MG/10 ML VIAL ONE (08:23)
[2019-05-06] MEDS ORDERED: PHENYLEPHRINE-NS 100 MCG/ML 10 ML SYRINGE ONE (10:23)
[2019-05-06] MEDS ORDERED: EPINEPHrine 1 MG/ML AMP ONE (10:23)
[2019-05-06] MEDS ORDERED: Ropivacaine 0.2% HCl/PF (40 MG/20 ML VIAL) ONE (10:23)
[2019-05-06] MEDS ORDERED: PROPOFOL 200 MG/20 ML VIAL ONE (10:23)
[2019-05-06] MEDS ORDERED: Ondansetron PF 4 MG/2 ML Vial ONE (10:23)
[2019-05-06] MEDS ORDERED: Lidocaine 1% PF 5 ML VIAL ONE (10:23)
[2019-05-06] MEDS ORDERED: Ropivacaine 0.5% HCl/PF (150 MG/30 ML VIAL) ONE (10:23)
[2019-05-06] MEDS ORDERED: ePHEDrine/0.9% NaCl/PF SYRINGE 50 mg/10 ml ONE (10:23)
[2019-05-06] MEDS ORDERED: Promethazine HCl 25 MG/ML VIAL IM PRN ×3 (11:07→12:47)
[2019-05-06] MEDS ORDERED: Fentanyl 100 MCG/2 ML VIAL SLOW IVP PRN (11:07)
[2019-05-06] MEDS ORDERED: diphenhydrAMINE 25 MG CAP PO PRN (11:07)
[2019-05-06] MEDS ORDERED: Acetaminophen 325 MG TAB PO PRN ×2 (11:07→11:09)
[2019-05-06] MEDS ORDERED: Zolpidem Tartrate 5 MG TAB PO PRN ×2 (11:07→11:13)
[2019-05-06] MEDS ORDERED: HYDROcodone/Acetaminophen 10/325 mg Tablet PO PRN ×2 (11:07)
[2019-05-06] MEDS ORDERED: traMADol HCl 50 MG TAB PO PRN ×2 (11:07→11:13)
[2019-05-06] MEDS ORDERED: Ondansetron PF 4 MG/2 ML Vial IVP PRN ×2 (11:07→11:13)
[2019-05-06] MEDS ORDERED: Ropivacaine HCl/PF 250 ML in Premix Bag 1 BAG NERVE BLCK SCH (11:13)
[2019-05-06] MEDS ORDERED: Fentanyl 100 MCG/2 ML VIAL IV PRN (11:14)
[2019-05-06] MEDS ORDERED: Promethazine HCl 25 MG/ML VIAL SLOW IVP PRN (12:47)
[2019-05-06] MEDS ORDERED: Ondansetron HCl/PF 4 MG/2 ML Vial IVP PRN (12:47)
--- NOTE | 2019-05-06 14:04 | OP ---
DATE OF PROCEDURE: 05/06/2019 PREOPERATIVE DIAGNOSIS: Degenerative joint disease, left knee. POSTOPERATIVE DIAGNOSIS: Degenerative joint disease, left knee. PROCEDURE PERFORMED: Left total knee arthroplasty using Lewis Triathlon 4 femur, 3 tibia, 11 mm CS X3 polyethylene, and A29 patella. COMPUTER SYSTEMS ARCHITECT: Vance Kirkland PA-C ESTIMATED BLOOD LOSS: Minimal. SPECIMENS: None. DRAINS: None. COMPLICATIONS: None. TOURNIQUET TIME: 53 minutes. PROCEDURE IN DETAIL: After informed consent was obtained in the preoperative holding area, the patient was taken to the operative suite where general anesthesia was induced. Once adequate level of general anesthesia was obtained, the patient was positioned and a well-padded tourniquet was placed around the left proximal thigh. The left lower extremity was then prepped and draped in the usual sterile fashion. Prior to exsanguination, a time-out was called and all members of the surgical team agreed upon site, surgeon, and patient. The extremity was then exsanguinated and the tourniquet was raised. A midline longitudinal incision was then made directly over the patella extending 2 fingerbreadths above the superior pole of the patella and 2 fingerbreadths inferior to the inferior patellar pole of the patella. Deeper subcutaneous layers were dissected sharply and local bleeding was controlled with Bovie electrocautery. A quad tendon longitudinal split was then made sharply and a median parapatellar arthrotomy was carried out both sharp and with Bovie electrocautery, carried down to 1 fingerbreadth medial to the tibial tubercle. The knee was then placed into flexion and the patella was everted nicely, and a copious fat pad ectomy was performed allowing for greater exposure of the tibia. The computer-assisted distal femoral fiducial was then placed and pinned firmly, and the distal femoral cutting guide was pinned firmly into place. The oscillating saw was then used to remove the appropriate amount of bone. The 4-in-1 cutting block was then placed on the distal femur and the oscillating saw was used to remove the appropriate amount of bone off the anterior, posterior, and chamfer cuts. After completion of bone cuts, the anterior cruciate ligament was resected sharply and the posterior cruciate ligament retractor was placed and the tibia was subluxed for better exposure. Partial meniscectomies were carried out, and the tibial computer-assisted fiducial was pinned, and the cutting guide was placed. Oscillating saw was then used to remove the bone, with Hohmann retractors used to take care and protect the collateral ligaments. After the tibial resection was performed, a laminar utility agent was placed in between the freshened bone cuts. The knee placed at 90 degrees and further bilateral meniscectomies were carried out, and the curved osteotome and curettage were used to remove any excess bone spurs in the posterior compartment. The trial femoral component, tibial baseplate were placed with the appropriate polyethylene trial insert with an appropriate polyethylene spacer and patellar button. The knee was taken through full range of motion with flexion and extension from 0 to 90 degrees and patellar broach squarely in the trochlea without any squinting or subluxation noted. The knee was also stable to varus and valgus stressing at 0, 15, 45, and 90 degrees of flexion. The drawer was negative. All trial components were then removed and the keel punch was used to provide the appropriate defect in the tibia with a mallet. The freshened bone cuts were copiously irrigated with pulsatile lavage of about 1.5 L to remove all excess debris. The freshened bone cuts were then dried with suction and lap sponge. The knee was placed in flexion and retractors were placed to provide access to all bone cuts. Tobramycin-impregnated methyl methacrylate cement was then placed on the freshened bone cuts and implants which were malleted firmly into place. Curettage and [place] elevators were used to remove any excess bone cement. The knee was placed into full extension and the patellar button was placed under compression, and the cement was allowed to cure. Once completed, the components were again taken through full range of motion and copious irrigation of the knee was carried out with another liter of normal saline. All components were inspected fully with full range of motion and varus and valgus stressing. There was no laxity noted and full extension was observed clinically. Primary closure was accomplished with #2 interrupted Vicryl stitch of the arthrotomy defect. This was oversewn with a #2 running Quill barbed stitch. The gravitational platelet system was then injected into the arthrotomy prior to closure. The subcutaneous layer was then closed with a running 0 barbed Monocryl stitch and skin closure accomplished with a running subcuticular 3-0 Monocryl barbed Quill stitch and augmented with cement on the skin. Tourniquet was lowered. Good spontaneous return of distal pulses was noted clinically and a sterile dressing was applied to the incision. The procedure was terminated without any complications. The patient was awakened in the operative suite and the patient was taken to the recovery room in stable condition. Job ID: [id number]
--- NOTE | 2019-05-06 14:57 | RAD ---
LEFT KNEE TWO VIEWS: HISTORY: Status post left knee arthroplasty. COMPARISON: None. FINDINGS: Three views of the left knee show the patient to be status post left knee arthroplasty without periha rdware lucency or fracture. Air in the soft tissues is from recent surgery. IMPRESSION: Status post left knee arthroplasty without evidence of complication. POS: OFF
[2019-05-06] MEDS ORDERED: CEFAZOLIN 2 GM in Premix Bag 1 BAG IVPB SCH (16:00)
[2019-05-06] MEDS: Sodium Chloride 0.9% 1,000 ML IV SCH (16:23)
[2019-05-06] MEDS: HYDROcodone/Acetaminophen 10/325 mg Tablet PO PRN (18:11)
[2019-05-06] MEDS: traMADol HCl 50 MG TAB PO PRN (19:53)
[2019-05-06] MEDS: Ferrous Gluconate 324 MG TAB PO SCH (19:55)
[2019-05-06] MEDS: Aspirin 81 mg Enteric Coated Tablet PO SCH (19:55)
[2019-05-06] MEDS: Aspirin Chewable 81 MG TAB PO SCH (19:55)
[2019-05-06] MEDS: Atorvastatin Calcium 20 MG TAB PO SCH (20:02)
[2019-05-06] MEDS: CEFAZOLIN 2 GM in Premix Bag 1 BAG IVPB SCH (20:50)
[2019-05-06] MEDS ORDERED: [UNRECOGNIZED DRUG - OTHER] PO SCH (21:00)
[2019-05-06] MEDS ORDERED: TIMOLOL MALEATE 0.5% EA EYE SCH (21:00)
[2019-05-06] MEDS ORDERED: VIT B12 PO SCH (21:00)
[2019-05-06] MEDS ORDERED: B6 PO SCH (21:00)
[2019-05-06] MEDS ORDERED: FOLIC ACID PO SCH (21:00)
[2019-05-07] MEDS: Senokot S 8.6-50 MG TAB PO SCH ×3 (00:23→20:27)
[2019-05-07] MEDS: Sodium Chloride 0.9% 1,000 ML IV SCH ×3 (00:23→14:52)
[2019-05-07] MEDS: Latanoprost 0.005% Ophth Soln 2.5 ml Bottle EA EYE SCH ×2 (00:23→22:07)
[2019-05-07] MEDS: Brimonidine Tartrate 0.2% Ophth Soln 5 ml Bottle EA EYE SCH ×3 (00:23→22:07)
[2019-05-07] MEDS: HYDROcodone/Acetaminophen 10/325 mg Tablet PO PRN ×3 (04:03→20:32)
[2019-05-07] MEDS: CEFAZOLIN 2 GM in Premix Bag 1 BAG IVPB SCH (04:07)
[2019-05-07 06:05] LABS: Hemoglobin 10.2 g/dL (12.0-16.0); Mean Corpuscular HGB CONC 32.9 g/dL (32.0-36.0); Mean Corpuscular Hemoglobin 31.9 pg (27.0-31.0); Mean Corpuscular Volume 97.2 fL (78.0-98.0); Mean Platelet Volume 8.4 fL (7.4-10.4); Platelet Count 134 thou/uL (130-400); RBC Distribution Width 13.2 % (11.5-14.5); Red Blood Cell (RBC) Count 3.19 mill/uL (4.20-5.40); White Blood Cell (WBC) Count 6.1 thou/uL (4.8-10.8)
[2019-05-07] MEDS: Levothyroxine Sodium 75 MCG TAB PO SCH (06:26)
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
--- NOTE | 2019-05-07 08:37 | PRG ---
DATE OF SERVICE: 05/07/2019 SUBJECTIVE: Jaimie is a 78-year-old female, postop day 1 from left total knee arthroplasty. She is doing relatively well. Her daughter is at the bedside and has been taking care of the patient. Her pain is relatively better controlled this morning other than that was last night. OBJECTIVE: VITAL SIGNS: Temperature 98.7, pulse 102, respiratory rate 18, and blood pressure is 135/73. NEUROLOGIC: She is alert, responsive, appropriate with the examiner. Neurovascularly intact. Incision is clean. No strike through. LABORATORY DATA: Hemoglobin and hematocrit are 10.2 and 31.0. IMPRESSION: A 78-year-old female, postop day 1, left total knee arthroplasty, doing well. PLAN: Continue current care. Probable discharge home tomorrow with supportive family. Job ID: [id number]
[2019-05-07] MEDS: Aspirin 81 mg Enteric Coated Tablet PO SCH ×2 (08:43→20:26)
[2019-05-07] MEDS: Folic Acid 1 MG TAB PO SCH (08:43)
[2019-05-07] MEDS: Ferrous Gluconate 324 MG TAB PO SCH ×2 (08:44→20:27)
[2019-05-07] MEDS: Multivitamin W/ Minerals 1 TAB PO SCH (08:44)
[2019-05-07] MEDS ORDERED: hydrALAZINE 20 MG/ML VIAL SLOW IVP PRN (08:51)
[2019-05-07] MEDS ORDERED: FERROUS FUMARATE PO SCH (09:00)
[2019-05-07] MEDS ORDERED: ASCORBIC ACID PO SCH (09:00)
[2019-05-07] MEDS ORDERED: Losartan 25 MG TAB PO SCH ×2 (09:00→21:00)
[2019-05-07] MEDS: traMADol HCl 50 MG TAB PO PRN (11:06)
[2019-05-07] MEDS: Atorvastatin Calcium 20 MG TAB PO SCH (20:27)
[2019-05-07] MEDS: Aspirin Chewable 81 MG TAB PO SCH (22:07)
[2019-05-08] MEDS: Sodium Chloride 0.9% 1,000 ML IV SCH (02:36)
[2019-05-08 06:12] LABS: Hemoglobin 9.7 g/dL (12.0-16.0); Mean Corpuscular HGB CONC 32.4 g/dL (32.0-36.0); Mean Corpuscular Hemoglobin 31.9 pg (27.0-31.0); Mean Corpuscular Volume 98.3 fL (78.0-98.0); Platelet Count 111 thou/uL (130-400); RBC Distribution Width 13.2 % (11.5-14.5); Red Blood Cell (RBC) Count 3.04 mill/uL (4.20-5.40); White Blood Cell (WBC) Count 7.9 thou/uL (4.8-10.8)
[2019-05-08 06:18] LABS: Anion Gap 13 mmol/L (10-20); BUN (Urea Nitrogen) 37 mg/dL (9.8-20.1); Calc. Creatinine Clearance 21 mL/min (70-130); Calcium 8.6 mg/dL (7.8-10.44); Carbon Dioxide 19 mmol/L (23-31); Chloride 103 mmol/L (98-107); Estimated GFR-MDRD 25; Glucose 151 mg/dL (83-110); Potassium 5.2 mmol/L (3.5-5.1); Sodium 130 mmol/L (136-145)
[2019-05-08] MEDS: Levothyroxine Sodium 75 MCG TAB PO SCH (07:21)
[2019-05-08] MEDS: Aspirin 81 mg Enteric Coated Tablet PO SCH (08:49)
[2019-05-08] MEDS: Senokot S 8.6-50 MG TAB PO SCH (08:49)
[2019-05-08] MEDS: Ferrous Gluconate 324 MG TAB PO SCH (08:49)
[2019-05-08] MEDS: Multivitamin W/ Minerals 1 TAB PO SCH (08:49)
[2019-05-08] MEDS: Folic Acid 1 MG TAB PO SCH (08:49)
[2019-05-08] MEDS: HYDROcodone/Acetaminophen 10/325 mg Tablet PO PRN ×2 (08:49→13:24)
[2019-05-08 08:56] VITALS: BP 110/70; TEMP 98.2
[2019-05-08] MEDS: Brimonidine Tartrate 0.2% Ophth Soln 5 ml Bottle EA EYE SCH (08:56)
== END 2019-05-08 13:51 | disposition home or self-care (01) ==
LOC: EEVIPCON 07:26 → SDC 07:26 → SJJU 11:08 → SDC 05-08 13:51
PROVIDERS: ATTEND Orthopaedic Surgery
PROC: 0SRD0J9 Replacement of Left Knee Joint with Synthetic Substitute, Cemented, Open Approach (ICD-10-PCS; principal; 2019-05-06)
PROC: 8E0YXBZ Computer Assisted Procedure of Lower Extremity (ICD-10-PCS; 2019-05-06)
DX: M17.12 Unilateral primary osteoarthritis, left knee (principal); E03.9 Hypothyroidism, unspecified; I12.9 Hypertensive chronic kidney disease with stage 1 through stage 4 chronic kidney disease, or unspecified chronic kidney disease; N18.3 Chronic kidney disease, stage 3 (moderate); K21.9 Gastro-esophageal reflux disease without esophagitis; Z79.82 Long term (current) use of aspirin; Z79.899 Other long term (current) drug therapy; Z88.6 Allergy status to analgesic agent; Z91.010 Allergy to peanuts
CPT/HCPCS: 20985; 27447; 73560; 80048; 85027; 97110; 97116 ×3; 97139 ×3; 97150 ×2; 97530 ×3; 98962 ×2; C1713; C1776; 36415; J0171; J0690; J2001; J2250; J2405; J2704; J2795; J3010; J3370; J3490

== ENCOUNTER 2021-06-06 07:38 | Outpatient (CLI) | payer MEDICARE, MEDICAID | END 2021-06-06 07:39 | disposition home or self-care (01) | LOC: ULT 07:38 | PROVIDERS: ATTEND Physician Assistant Medical | DX: K74.60 Unspecified cirrhosis of liver (principal); D64.9 Anemia, unspecified; K80.20 Calculus of gallbladder without cholecystitis without obstruction; K83.8 Other specified diseases of biliary tract | CPT/HCPCS: 76705 ==

== ENCOUNTER 2021-07-15 08:15 | Outpatient (CLI) | payer MEDICARE, OTHER ==
[2021-07-15] MEDS ORDERED: Magnevist 469MG/ML 20 ML VIAL ONE (09:39)
== END 2021-07-15 08:16 | disposition home or self-care (01) ==
LOC: MRI 08:15
PROVIDERS: ATTEND Physician Assistant Medical
DX: K74.60 Unspecified cirrhosis of liver (principal); K80.20 Calculus of gallbladder without cholecystitis without obstruction
CPT/HCPCS: 74183; 82565; A9579

== ENCOUNTER 2021-07-29 08:12 | Outpatient (CLI) | payer MEDICARE, MEDICAID | END 2021-07-29 08:13 | disposition home or self-care (01) | LOC: ULT 08:12 | PROVIDERS: ATTEND Internal Medicine Nephrology | DX: N18.4 Chronic kidney disease, stage 4 (severe) (principal) | CPT/HCPCS: 76770 ==

== ENCOUNTER 2022-03-20 07:31 | Outpatient (CLI) | payer MEDICARE, OTHER | END 2022-03-20 07:32 | disposition home or self-care (01) | LOC: BICULT 07:31 | PROVIDERS: ATTEND Physician Assistant Medical | DX: K74.60 Unspecified cirrhosis of liver (principal); K80.20 Calculus of gallbladder without cholecystitis without obstruction; K83.8 Other specified diseases of biliary tract | CPT/HCPCS: 76705 ==

== ENCOUNTER 2023-02-15 10:10 | Day surgery (SDC) | payer OTHER ==
[~2023-02-15 10:10] MED LIST: Acetaminophen 500 MG TAB PO SCH; diphenhydrAMINE 25 MG CAP PO SCH
[2023-02-15] MEDS ORDERED: diphenhydrAMINE 25 MG CAP ONE (11:48)
[2023-02-15] MEDS ORDERED: Acetaminophen 500 MG TAB ONE (11:48)
[2023-02-15 15:11] VITALS: TEMP 98.4
[2023-02-16 12:56] VITALS: BP 201/85
== END 2023-02-15 14:56 | disposition home or self-care (01) ==
LOC: ONC/OP 10:10
PROVIDERS: ATTEND Internal Medicine Hematology & Oncology
DX: D64.9 Anemia, unspecified (principal); D69.6 Thrombocytopenia, unspecified
CPT/HCPCS: 36430; 86850; 86900; 86901; 86920; P9016

== ENCOUNTER 2023-09-14 11:57 | Day surgery (SDC) | payer OTHER ==
[2023-09-14] MEDS ORDERED: Acetaminophen 325 MG TAB ONE (14:14)
[2023-09-14] MEDS: Acetaminophen 325 MG TAB PO SCH (14:15)
[2023-09-14 17:14] VITALS: BP 171/76; TEMP 98.5
== END 2023-09-14 17:09 | disposition home or self-care (01) ==
LOC: ONC/OP 11:57
PROVIDERS: ATTEND Internal Medicine Cardiovascular Disease
DX: D64.9 Anemia, unspecified (principal); L97.921 Non-pressure chronic ulcer of unspecified part of left lower leg limited to breakdown of skin; N28.9 Disorder of kidney and ureter, unspecified; I10 Essential (primary) hypertension; E11.9 Type 2 diabetes mellitus without complications; E78.00 Pure hypercholesterolemia, unspecified; Z79.899 Other long term (current) drug therapy; Z96.652 Presence of left artificial knee joint; E07.9 Disorder of thyroid, unspecified; M19.90 Unspecified osteoarthritis, unspecified site; Z88.8 Allergy status to other drugs, medicaments and biological substances; Z91.010 Allergy to peanuts; Z88.6 Allergy status to analgesic agent
CPT/HCPCS: 36430; 86850; 86900; 86901; 86920; P9016